=== PATIENT | female | born 1990 | race Caucasian/White ===

== ENCOUNTER 2016-08-08 16:06 | Outpatient (CLI) | payer OTHER ==
[~2016-08-08 16:06] MED LIST: AUGMENTIN875 MG PO; CITRATE OF MAG296 ML PO; LORTAB 5-500 T1 EACH PO; Motrin PO; NOHOMEMEDS; PROMETHAZINE HC25 M1 PO; TEGRETOL; ZOFRAN ODT4 MG PO
[2016-08-08 16:37] VITALS: BP 121/62
[2016-08-08 19:01] LABS: ADD MIUA? YES; BILIRUBIN NEGATIVE; BLOOD NEGATIVE; GLUCOSE (STRIP) NEGATIVE; KETONES NEGATIVE; LEUKOCYTES LARGE; NITRITE NEGATIVE; PROTEIN (STRIP) 30; UROBILINOGEN 0.2 MG/DL (0.2-1.0)
[2016-08-08 20:01] VITALS: BP 127/68
[2016-08-08 20:30] LABS: BACTERIA RARE /HPF; CALCIUM OXALATE CRYSTALS 3+ /HPF; EPITHELIAL CELLS 2+ /HPF; HYALINE CASTS 0-5 /LPF; MUCUS 3+ /LPF; RED BLOOD CELLS 0-5 /HPF (0-5); UCUL ADDED? NO; WHITE BLOOD CELLS 30-40 /HPF (0-5)
[2016-08-08 20:35] LABS: COLOR YELLOW ((YELLOW))
[2016-08-08 21:44] LABS: CANDIDA DNA PROBE NEGATIVE; GARDNERELLA DNA PROBE NEGATIVE; INTERNAL CONTROL VALID? YES
== END 2016-08-08 20:35 | disposition home or self-care (01) ==
LOC: LDRP-OP 16:06 → 2WEST 16:08 → LDRP-OP 10-15 09:40
PROVIDERS: Midwife
DX: O26.893 Other specified pregnancy related conditions, third trimester (principal); R10.2 Pelvic and perineal pain; Z3A.34 34 weeks gestation of pregnancy
CPT/HCPCS: 59025; 81003; 87081; 87480; 87510; 87653; 87660; G0378

== ENCOUNTER 2016-08-26 07:25 | Outpatient (CLI) | payer OTHER ==
[2016-08-26 07:49] VITALS: BP 128/85
[2016-08-26 08:07] VITALS: BP 137/71
== END 2016-08-26 11:37 | disposition home or self-care (01) ==
LOC: LDRP-OP 07:25 → 2WEST 07:26 → LDRP-OP 10-15 20:45
DX: O47.1 False labor at or after 37 completed weeks of gestation (principal); Z3A.37 37 weeks gestation of pregnancy
CPT/HCPCS: 59025; G0378

== ENCOUNTER 2016-09-07 00:20 | Outpatient (CLI) | payer OTHER ==
[~2016-09-07] VITALS: Ht 154.9 cm; Wt 103.4 kg
[2016-09-07 01:06] LABS: HEMATOCRIT 33.1 % (36.0-46.0); MCH 27.7 PG (29.0-34.0); MCHC 32.9 G/DL (30.0-36.0); MCV 84.2 FL (83-99); MEAN PLAT.VOLUME 9.9 uM^3 (9.5-12.4); PLATELET COUNT 213 K/uL (156-360); RBC DIS.WIDTH-SD 39.4 % (39-53); RED BLOOD COUNT 3.93 M/uL (3.80-5.20); WHITE BLOOD COUNT 7.1 K/uL (4.1-10.2)
[2016-09-07 01:19] LABS: CHLORIDE 104 mEq/L (99-109); SODIUM 137 mEq/L (136-147)
[2016-09-07 01:22] LABS: ANION GAP 9 MEQ/L (2-14)
[2016-09-07 01:24] LABS: GFR ESTIMATE (CALCULATED) > 59 mL/min/
[2016-09-07 01:25] LABS: UREA NITROGEN (BUN) 5 mg/dL (9-23)
[2016-09-07 01:30] LABS: TROP-I INTERPRETATION NEGATIVE; TROPONIN-I < 0.01 ng/mL (0.0-0.30)
[2016-09-07 01:34] LABS: LIPASE 26 U/L (1.0-51.0)
[2016-09-07 01:39] LABS: ADD MIUA? YES; BILIRUBIN NEGATIVE; BLOOD SMALL; COLOR YELLOW ((YELLOW)); GLUCOSE (STRIP) NEGATIVE; KETONES NEGATIVE; LEUKOCYTES TRACE; NITRITE NEGATIVE; PROTEIN (STRIP) NEGATIVE; SPECIFIC GRAVITY 1.005 (1.000-1.030); UROBILINOGEN 0.2 MG/DL (0.2-1.0)
[2016-09-07 01:46] LABS: MAGNESIUM 1.3 mg/dL (1.3-2.7)
[2016-09-07 01:47] LABS: GLUCOSE 99 mg/dL (70-99)
[2016-09-07 01:49] LABS: TOTAL BILIRUBIN 0.3 mg/dL (0.0-1.0)
[2016-09-07 01:50] LABS: BACTERIA RARE /HPF; EPITHELIAL CELLS 1+ /HPF; MUCUS TRACE /LPF; RED BLOOD CELLS 0-5 /HPF (0-5); UCUL ADDED? NO; WHITE BLOOD CELLS 0-5 /HPF (0-5)
[2016-09-07 01:50] LABS: ALKALINE PHOSPHATASE 170 IU/L (3-129)
[2016-09-07 01:53] LABS: DIRECT BILIRUBIN 0.1 mg/dL (0.0-0.3)
[2016-09-07 03:36] LABS: UR CREATININE CONCENTRATION 40.8 MG/DL
[2016-09-07 03:43] VITALS: BP 135/87
[2016-09-07 04:14] VITALS: BP 132/73
[2016-09-08] MEDS ORDERED: TUMS500 MG PO (07:24)
[2016-09-08] MEDS ORDERED: IBUPROFEN800 MG PO (15:05)
== END 2016-09-07 04:57 | disposition home or self-care (01) ==
LOC: EME 00:20 → LDRP-OP 00:20 → EME 00:20 → EDSTATUS 03:09 → 2WEST 03:10
PROVIDERS: Emergency Medicine
DX: O13.3 Gestational [pregnancy-induced] hypertension without significant proteinuria, third trimester (principal); O12.03 Gestational edema, third trimester; Z3A.39 39 weeks gestation of pregnancy; O28.0 Abnormal hematological finding on antenatal screening of mother; E87.6 Hypokalemia; R74.8 Abnormal levels of other serum enzymes; O99.013 Anemia complicating pregnancy, third trimester; R07.89 Other chest pain
CPT/HCPCS: 59025; 80048; 80076; 81003; 82570; 83690; 83735; 83880; 84156; 84484; 85027; 93005; 99281; 99285; G0378; J3480; S0028

== ENCOUNTER 2016-09-08 06:21 | Inpatient (IN) | payer OTHER ==
[2016-09-08] VITALS (19 sets, daily range): BP systolic 123–143; BP diastolic 61–92
[~2016-09-08] VITALS: Ht 154.9 cm; Wt 102.7 kg
[2016-09-08] MEDS ORDERED: TUMS500 MG PO (07:24)
[2016-09-08 09:58] LABS: EOSINOPHIL COUNT 0.1 K/uL (0-0.3); HEMATOCRIT 31.8 % (36.0-46.0); IMMATURE GRANULOCYTE (%) 0.5 % (0.0-0.7); INSTRUMENT ABS NEUTROPHIL CT 6.1 K/uL; LYMPHOCYTE COUNT 1.5 K/uL (1.0-2.8); MCH 27.9 PG (29.0-34.0); MCV 84.6 FL (83-99); MONOCYTE COUNT 0.4 K/uL (0-0.8); NEUTROPHIL COUNT 6.1 K/uL (1.8-6.4); PLATELET COUNT 190 K/uL (156-360); RBC DIS.WIDTH-CV 13.2 % (11.8-14.6); RBC DIS.WIDTH-SD 40.1 % (39-53); RED BLOOD COUNT 3.76 M/uL (3.80-5.20); WHITE BLOOD COUNT 8.1 K/uL (4.1-10.2)
[2016-09-08] MEDS ORDERED: IBUPROFEN800 MG PO (15:05)
[2016-09-08 15:14] LABS: AMPHETAMINES QUANT VALUE 0 NG/ML; BARBITUATES QUANT VALUE 0 NG/ML; BENZODIAZEPINES QUANT VALUE 0 NG/ML; BENZODIAZEPINES, URINE SCREEN Negative (200 ng/mL); OPIATES QUANTITATIVE VALUE 0 NG/ML; PHENCYCLIDINE QUANT VALUE 0 NG/ML
[2016-09-09] VITALS (8 sets, daily range): BP systolic 119–153; BP diastolic 67–105
[2016-09-10 03:10] VITALS: BP 141/94
[2016-09-10 07:46] VITALS: BP 168/101
[2016-09-10 07:48] VITALS: BP 164/80
== END 2016-09-10 12:26 | disposition home or self-care (01) | DRG 775 ==
LOC: LDRP-OP 06:21 → 2WEST 06:22 → LDRP-OP 10-15 01:23
PROVIDERS: Midwife
PROC: 10E0XZZ Delivery of Products of Conception, External Approach (ICD-10-PCS; principal; 2016-09-08)
PROC: 3E033VJ Introduction of Other Hormone into Peripheral Vein, Percutaneous Approach (ICD-10-PCS; principal; 2016-09-08)
PROC: 10907ZC Drainage of Amniotic Fluid, Therapeutic from Products of Conception, Via Natural or Artificial Opening (ICD-10-PCS; principal; 2016-09-08)
PROC: 3E0S3CZ (ICD-10-PCS; 2016-09-08)
PROC: 00HU33Z Insertion of Infusion Device into Spinal Canal, Percutaneous Approach (ICD-10-PCS; 2016-09-08)
DX: O13.4 Gestational [pregnancy-induced] hypertension without significant proteinuria, complicating childbirth (principal); O99.214 Obesity complicating childbirth; O77.0 Labor and delivery complicated by meconium in amniotic fluid; O99.52 Diseases of the respiratory system complicating childbirth; Z3A.39 39 weeks gestation of pregnancy; Z37.0 Single live birth; J45.909 Unspecified asthma, uncomplicated
CPT/HCPCS: 80306 90; 85025; C1755; J3010; J7120

== ENCOUNTER 2016-11-27 06:49 | Emergency (ER) | payer OTHER ==
[~2016-11-27] VITALS: Ht 157.5 cm; Wt 95.0 kg
[~2016-11-27 06:49] MED LIST changes: +IBUPROFEN800 MG PO; +TUMS500 MG PO
[2016-11-27] MEDS ORDERED: TRAMADOL HCL50 MG PO (07:17)
[2016-11-27] MEDS ORDERED: PEN-VEE K,VEET500 MG PO (07:17)
[2016-11-27 07:37] VITALS: BP 143/98
== END 2016-11-27 07:37 | disposition home or self-care (01) ==
LOC: EME 06:49
DX: K02.9 Dental caries, unspecified (principal)
CPT/HCPCS: 99281; 99283